=== PATIENT | female | born 1990 | race American Indian/Alaskan Native ===

== ENCOUNTER 2021-05-02 17:56 | Emergency (ER) | payer OTHER ==
[2021-05-02 18:26] VITALS: BP 125/80
[2021-05-02] MEDS ORDERED: PENICILLIN G BENZATHINE 1.2 MILLION UNIT/2 ML INJ IM ONE (18:28)
[2021-05-02] MEDS ORDERED: KETOROLAC 60 MG/2 ML INJ IM ONE (18:29)
[2021-05-02] MEDS ORDERED: DEXAMETHASONE 4 MG TAB PO ONE (18:30)
[2021-05-02] MEDS ORDERED: ACETAMINOPHEN 500 MG TAB PO ONE (18:49)
--- NOTE | 2021-05-02 18:51 | Emergency Department Report ---
ED ENT HPI - General Chief complaint: Sore Throat Stated complaint: FEVER/THROAT CLOSING Time Seen by Provider: 05/02/21 18:27 Source: patient Mode of arrival: Ambulatory Limitations: No Limitations - History of Present Illness Initial comments: 30 yo black female presents to the ed for evaluation of 2 day history of fever, sore throat, headache, and abdominal pain. She states that she is having so much pain in her throat that it feels like her throat is closing up. MD complaint: sore throat, difficulty swallowing -: Gradual, days(s) (2) Location: throat Severity: severe Severity scale (0 -10): 10 Quality: aching Consistency: constant Improves with: none Worsens with: swallowing Associated Symptoms: fever, sore throat. denies: cough, rhinorrhea - Related Data Previous Rx's Medication Instructions Recorded Last Taken Type Nystas/Diphen/Xyl Visc/Mylanta 30 ml MM Q4H PRN #120 ml 05/02/21 Unknown Rx [Magic Mouthwash] methylPREDNISolone [Medrol 4MG 4 mg PO DAILY #1 pack 05/02/21 Unknown Rx DOSEPAK (21 tabs)] Allergies Allergy/AdvReac Type Severity Reaction Status Date / Time No Known Allergies Allergy Unverified 05/02/21 18:21 ED Dental HPI - General Chief complaint: Sore Throat Stated complaint: FEVER/THROAT CLOSING Time Seen by Provider: 05/02/21 18:27 Source: patient Mode of arrival: Ambulatory Limitations: No Limitations - Related Data Previous Rx's Medication Instructions Recorded Last Taken Type Nystas/Diphen/Xyl Visc/Mylanta 30 ml MM Q4H PRN #120 ml 05/02/21 Unknown Rx [Magic Mouthwash] methylPREDNISolone [Medrol 4MG 4 mg PO DAILY #1 pack 05/02/21 Unknown Rx DOSEPAK (21 tabs)] Allergies Allergy/AdvReac Type Severity Reaction Status Date / Time No Known Allergies Allergy Unverified 05/02/21 18:21 ED Review of Systems ROS: Stated complaint: FEVER/THROAT CLOSING Other details as noted in HPI Comment: All other systems reviewed and negative Constitutional: fever, malaise. denies: chills, weakness Eyes: denies: eye pain, eye discharge ENT: throat pain. denies: ear pain, dental pain, congestion Respiratory: denies: cough, shortness of breath, SOB with exertion Endocrine: no symptoms reported Gastrointestinal: abdominal pain. denies: nausea, vomiting Genitourinary: denies: urgency, dysuria, frequency, hematuria, discharge Musculoskeletal: denies: back pain Skin: denies: rash, lesions Neurological: headache. denies: weakness, numbness, paresthesias Psychiatric: denies: anxiety, depression Hematological/Lymphatic: denies: easy bleeding, easy bruising ED Past Medical Hx - Medications Home Medications: Home Medications Medication Instructions Recorded Confirmed Last Taken Type Nystas/Diphen/Xyl Visc/Mylanta 30 ml MM Q4H PRN #120 ml 05/02/21 Unknown Rx [Magic Mouthwash] methylPREDNISolone [Medrol 4MG 4 mg PO DAILY #1 pack 05/02/21 Unknown Rx DOSEPAK (21 tabs)] ED Physical Exam - General Limitations: No Limitations General appearance: alert, in no apparent distress - Head Head exam: Present: atraumatic, normocephalic - Eye Eye exam: Present: normal appearance. Absent: conjunctival injection - ENT ENT exam: Absent: normal orophraynx - Expanded ENT Exam Expanded Throat exam: Positive: tonsillar erythema, tonsillomegaly, tonsillar exudate. Negative: R peritonsillar mass, L peritonsillar mass - Neck Neck exam: Present: lymphadenopathy - Respiratory Respiratory exam: Present: normal lung sounds bilaterally. Absent: respiratory distress, wheezes, rales, rhonchi, chest wall tenderness - Cardiovascular Cardiovascular Exam: Present: tachycardia, normal heart sounds - GI/Abdominal GI/Abdominal exam: Present: soft, normal bowel sounds. Absent: distended, tenderness, guarding, rebound, rigid - Extremities Exam Extremities exam: Present: normal inspection - Back Exam Back exam: Present: normal inspection - Neurological Exam Neurological exam: Present: alert, oriented X3 - Psychiatric Psychiatric exam: Present: normal affect, normal mood - Skin Skin exam: Present: warm, dry, intact ED Course Vital Signs 05/02/21 18:25 Temperature 103.0 F H Pulse Rate 133 H Respiratory 18 Rate Blood Pressure 125/80 [Right] O2 Sat by Pulse 100 Oximetry ED Medical Decision Making - Medical Decision Making 30 yo black female presents to the ed for evaluation of 2 day history of fever, sore throat, headache, and abdominal pain. She states that she is having so mu ch pain in her throat that it feels like her throat is closing up. Centor Score = >53% probability of strep. On assessment patient noted to be febrile with sore throat, abdominal pain, swollen tonsils with exudates presence, and lymphadenopathy. Patient will be treated with Bicillin 1.2m IU IM X 1, tylenol 1 gram for fever, toradol 60mg IM for pain and decadron 8 mg po for tonsilar swelling. Patient will be sent home with medrol dose pack and magic mouthwash. She was advised to follow up with pcp if no improvement or worsening symptoms. She verbalized understanding of and agreement with plan of care. Critical care attestation.: If time is entered above; I have spent that time in minutes in the direct care of this critically ill patient, excluding procedure time. ED Disposition Clinical Impression: Exudative pharyngitis Disposition: 01 HOME / SELF CARE / HOMELESS Is pt being admited?: No Does the pt Need Aspirin: No Condition: Stable Instructions: Strep Throat, Adult, [id number] Additional Instructions: Take medications as prescribed. Follow-up with primary care doctor if no improvement or worsening symptoms. Prescriptions: Nystas/Diphen/Xyl Visc/Mylanta [Magic Mouthwash] 30 ml MM Q4H PRN #120 ml PRN Reason: Sore Throat methylPREDNISolone [Medrol 4MG DOSEPAK (21 tabs)] 4 mg PO DAILY #1 pack Referrals: WALTER ESQUIVEL MD [Referring] - 3-5 Days Time of Disposition: 18:51
== END 2021-05-03 00:13 | disposition home or self-care (01) ==
LOC: ED 17:56
DX: J02.8 Acute pharyngitis due to other specified organisms (principal)
CPT/HCPCS: 96372; 99282; J0561; J1885; J8540